=== PATIENT | female | born 1945 | race Caucasian/White ===

== ENCOUNTER → 2017-07-15 | Outpatient (CLI) | payer OTHER ==
[2017-07-15 10:56] LABS: BASO % 0.5 %; BASO ABS # 0.02 K/uL (0-0.2); COMPLETE YES; EOS % 7.2 %; HEMATOCRIT 43.3 % (37-47); LYMPH % 45.4 %; LYMPH ABS # 1.88 K/uL (1.2-3.4); MEAN CELL VOLUME 92.3 fL (80-100); MEAN CORPUSCULAR HEMOGLOBIN 31.6 pg (25-34); MEAN CORPUSCULAR HGB CONC 34.2 g/dl (32-36); MONO % 9.2 %; NEUT % 37.7 %; PLATELET COUNT 216 K/uL (130-400); RED BLOOD COUNT 4.69 M/uL (4.2-5.4); WHITE BLOOD COUNT 4.14 K/uL (4.8-10.8)
[2017-07-15 11:36] LABS: ALT/SGPT 35 U/L (12-78); AST/SGOT 26 U/L (15-37); BLOOD UREA NITROGEN 22 mg/dl (7-18); CALCIUM 9.8 mg/dl (8.5-10.1); CARBON DIOXIDE 26 mmol/L (21-32); CHLORIDE 108 mmol/L (98-107); CHOLESTEROL 213 mg/dl (0-200); CREATININE 0.66 mg/dl (0.60-1.20); GLUCOSE 92 mg/dl (70-99); POTASSIUM 3.8 mmol/L (3.5-5.1); SODIUM 140 mmol/L (136-145); TRIGLYCERIDES 60 mg/dl (0-150); URIC ACID 3.4 mg/dl (2.6-7.2); VERY LOW DENSITY LIPOPROT CALC 12 mg/dl
[2017-07-15 11:45] LABS: ALKALINE PHOSPHATASE 66 U/L (45-117); CHOLESTEROL/HDL RATIO 3.1; HDL CHOLESTEROL 69 mg/dl; LDL CHOLESTEROL CALCULATED 132 mg/dl; TOTAL IRON BINDING CAPACITY 331 mcg/dl (250-450)
[2017-07-15 11:55] LABS: ESTIMATED AVERAGE GLUCOSE 120 mg/dl; HA1C FLAG Normal (Normal)
--- NOTE | 2017-07-21 15:15 | CODING QUERY NO DIAGNOSIS ---
TREATMENT RENDERED WITHOUT A DIAGNOSIS 47 To promote full compliance with coding requirements relating to patient care, physician participation is requested in all cases of remote inpatient coder uncertainty. Please assist us with providing a diagnosis/symptom for the test(s) below: A diagnosis/symptom was not documented on your Order. A valid diagnosis/symptom is required to bill all insurances. Please remember that we are unable to code a diagnosis of rule out, probable, possible, questionable, or suspected. DOS 07/15/17 Tests that require a diagnosis: * COMP METABOLIC DIAGNOSIS: * CREATININE PHOSPHOKINASE DIAGNOSIS: * LIPID PROFILE FASTING DIAGNOSIS: * T4 FREE DIAGNOSIS: * TSH DIAGNOSIS: * URIC ACID DIAGNOSIS: * HEMOGLOBIN A1C DIAGNOSIS: * CBC W/AUTO DIFF DIAGNOSIS: * VITAMIN B12 DIAGNOSIS: * VITAMIN D, 25-HYDROXY DIAGNOSIS: Provider Signature: Date: Thank you [facility] Once completed, please kindly fax back to [phone] For questions please call [phone]
--- NOTE | 2017-08-08 12:37 | CODING QUERY MEDICAL NECESSITY ---
SUPPORTING DIAGNOSIS NEEDED A supporting diagnosis is required for the test/procedure performed on this patient in order for us to be reimbursed by the patient's insurance. Please provide a supporting diagnosis for the following test/procedure listed below next to the test name along with your signature. *If there is no additional diagnosis for this patient that would support the following test/procedure please document that below next to the test/procedure. Test(s)/Procedure(s) that require a supporting diagnosis: * HEMOGLOBIN A1C DIAGNOSIS: Provider Signature: Date: Thank you Monica Nevarez [email or web address] Information Management Once completed, please kindly fax back to [phone] For questions please call [phone]
== END | disposition home or self-care (01) ==
LOC: C.LABBC 08:10
PROVIDERS: ATTEND Family Medicine
DX: M81.0 Age-related osteoporosis without current pathological fracture (principal); R53.82 Chronic fatigue, unspecified; G47.30 Sleep apnea, unspecified; D51.9 Vitamin B12 deficiency anemia, unspecified; E55.9 Vitamin D deficiency, unspecified

== ENCOUNTER → 2018-02-21 | Outpatient (CLI) | payer OTHER ==
[2018-02-21 13:19] LABS: BASO % 0.5 %; BASO ABS # 0.02 K/uL (0-0.2); EOS ABS # 0.26 K/uL (0-0.5); HEMATOCRIT 41.7 % (37-47); HEMOGLOBIN 13.9 g/dL (12.0-16.0); IG# 0.01 K/uL (0.00-0.02); LYMPH % 38.2 %; LYMPH ABS # 1.65 K/uL (1.2-3.4); MEAN CELL VOLUME 93.7 fL (80-100); MEAN CORPUSCULAR HEMOGLOBIN 31.2 pg (25-34); MEAN CORPUSCULAR HGB CONC 33.3 g/dl (32-36); MEAN PLATELET VOLUME 9.6 fL (7.4-10.4); MONO % 10.2 %; MONO ABS # 0.44 K/uL (0.11-0.59); NEUT % 44.9 %; NEUT ABS # 1.94 K/uL (1.4-6.5); PLATELET COUNT 217 K/uL (130-400); RED CELL DISTRIBUTION WIDTH CV 13.8 % (11.5-14.5); RED CELL DISTRIBUTION WIDTH SD 47.3 fL (36.4-46.3); WHITE BLOOD COUNT 4.32 K/uL (4.8-10.8)
[2018-02-21 13:46] LABS: ALBUMIN 3.5 gm/dl (3.4-5.0); ALT/SGPT 32 U/L (12-78); AST/SGOT 18 U/L (15-37); BLOOD UREA NITROGEN 19 mg/dl (7-18); CALCIUM 9.2 mg/dl (8.5-10.1); CARBON DIOXIDE 28 mmol/L (21-32); CHOLESTEROL 210 mg/dl (0-200); CREATININE 0.73 mg/dl (0.60-1.20); GLUCOSE 91 mg/dl (70-99); POTASSIUM 3.7 mmol/L (3.5-5.1); SODIUM 141 mmol/L (136-145); URIC ACID 3.3 mg/dl (2.6-7.2)
[2018-02-21 13:56] LABS: ALKALINE PHOSPHATASE 57 U/L (45-117); LDL CHOLESTEROL CALCULATED 133 mg/dl; TOTAL PROTEIN 7.2 gm/dl (6.4-8.2); TRANSFERRIN 251 mg/dl (200-360)
[2018-02-22 06:19] LABS: HEMOGLOBIN A1C 5.9 % (4.5-5.6)
== END | disposition home or self-care (01) ==
LOC: C.LABBC 10:17
PROVIDERS: ATTEND Family Medicine
DX: E88.81 Metabolic syndrome and other insulin resistance (principal); E55.9 Vitamin D deficiency, unspecified; D51.9 Vitamin B12 deficiency anemia, unspecified; E78.9 Disorder of lipoprotein metabolism, unspecified; R53.83 Other fatigue; M25.9 Joint disorder, unspecified

== ENCOUNTER 2024-03-27 05:15 | Observation (INO) ==
--- NOTE | 2024-03-07 11:01 | PAT Medication Instructions ---
Medication Instructions Date of Service March 07, 2024 Home Medications Medication Instructions Recorded CPAP Machine #1 ea 09/17/22 CPAP Supplies #1 ea 09/17/22 pravastatin 10 mg tablet 10 mg PO Q OTHER DAY #45 tabs 12/27/23 Medication List: calcium citrate 315 mg calcium-vitamin D3 6.25 mcg (250 unit) tablet (Citracal + Vitamin D Maximum) 1 tab PO BID conjugated estrogens 0.625 mg/gram vaginal cream 1 applic vaginal UD PRN Menopausal Symptoms multivitamin (Daily Multi-Vitamin tablet) 1 tab PO BID pravastatin 10 mg tablet 10 mg PO Q OTHER DAY aspirin 81 mg tablet,delayed release (Adult Aspirin Regimen) 81 mg PO DAILY Biocidin 1 dose PO TID Gi Detox 1 - 2 cap PO UD Pro Julio 2000 1 dose PO UD Ubiquinol 100mg 100 mg PO QAM Vitamin D/K2 1 dose PO UD alpha lipoic acid 300 mg capsule 300 mg PO QAM ashwagandha root extract 500 mg capsule 500 mg PO BID magnesium malate, chelate 1 cap PO TID valsartan 160 mg tablet 160 mg PO HS MEDICATION INSTRUCTIONS: Continue as directed conjugated estrogens 0.625 mg/gram vaginal cream 1 applic vaginal UD PRN Menopausal Symptoms ASK your prescriber and surgeon aspirin 81 mg tablet,delayed release (Adult Aspirin Regimen) 81 mg PO DAILY STOP taking 2 weeks before surgery Biocidin 1 dose PO TID Gi Detox 1 - 2 cap PO UD Pro Julio 2000 1 dose PO UD Ubiquinol 100mg 100 mg PO QAM alpha lipoic acid 300 mg capsule 300 mg PO QAM ashwagandha root extract 500 mg capsule 500 mg PO BID DO NOT take the morning of surgery calcium citrate 315 mg calcium-vitamin D3 6.25 mcg (250 unit) tablet (Citracal + Vitamin D Maximum) 1 tab PO BID multivitamin (Daily Multi-Vitamin tablet) 1 tab PO BID magnesium malate, chelate 1 cap PO TID Vitamin D/K2 1 dose PO UD Take morning of surgery With a small sip of water, OTHERWISE NOTHING TO EAT OR DRINK AFTER MIDNIGHT: pravastatin 10 mg tablet 10 mg PO Q OTHER DAY Take evening before surgery calcium citrate 315 mg calcium-vitamin D3 6.25 mcg (250 unit) tablet (Citracal + Vitamin D Maximum) 1 tab PO BID valsartan 160 mg tablet 160 mg PO HS multivitamin (Daily Multi-Vitamin tablet) 1 tab PO BID magnesium malate, chelate 1 cap PO TID Other Notes If you have any questions please call us at [phone] or [phone] or [phone] or [phone]
--- NOTE | 2024-03-13 12:57 | Anesthesiology Consultation ---
Date of Service March 13, 2024 Assessment & Plan (1) Encounter for pre-operative examination: - Check BSG AM DOS - Infectious disease screening: Per assessment on 03/13/24: No known infectious disease contacts or current infectious disease symptoms. No noted recent Covid positive test result. - Outpatient joint assessment: Pt currently scheduled for inpatient pathway. If surgeon requests review for outpatient joint pathway, patient is not recommended candidate for outpatient joint program from anesthesia standpoint based on available information. - PCP visit (02/09/24): "Executive function deficit.. We discussed various issues regarding the diet and exposure to mold I agree that the current dietary recommendations are likely to help. I told her I knew very little but mold remediation and recommended that she contact Her about this issue. We did discuss exercise at length. She wanted to begin exercise by walking up and down the steps to the basement. I felt that it would be best if she would exercise in a safe area as there are many safe alternatives that would help build her lower extremity and gluteal strength... Primary osteoarthritis of right knee.. She will be getting surgery in March.. Visual disturbance.. I will ask her duplex trimmer to perform formal visual field testing" - Neurology visit (02/21/24): "78 yo female with MCI and here to get neurology eval for her condition .she is mainly worry about short term memory and occasional visual perception of having a car next to her when trying to pass a car on the highway. she can still drive and no have issue with driving. does not get lost. she still active with going to dancing class etc. she was recently referred to dementia specialist she signed up for program that apparently is to help with overall cognition and prevent dementia. 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 she has no problem with sleep and no speech issues. mom with early onset dementia. no recent head injury. pt lives with , who is retired [employer] colonel. pt can still cook and clean and do all her chores. she is learning new computer at local class for free.. Impression: 78 yo female with MCI-single domain (memory) without sign of dementia. Her visual perception while driving is nonspecific and does not localize and I do not feel it is due to STAPLE LASTER lesion or dementia. mri brain reassuring but does have atrophy globally. Recommendations: reassured pt. educated about hand exercise to do at home. increase brain activities with learning new language/music etc. she can drive. clinically follow. Follow up in 6 months." - Patient concern: Patient states that sister had significant corneal abrasion r/t issues with mask/face covering during surgery in the past. No personal/similar issues for patient but concern with something like this occurring to her perioperatively and wanted to have noted. Chart Review Chart Review: Acceptable Risk for Surgery and Patient seen in Pre Admission Testing Teaching & Discussion Pre-Anesthesia Teaching/Discussion Notes: Instructed NPO after midnight before surgery,except medications with 15 cc of water. Medication instructions provided according to the PAT guidelines. History Surgery Operation Date: 03/27/24 08:50 Proposed Procedures p Right Total Knee Arthroplasty - Sb Henry MD Height/Weight Height: 5 ft 1 in Weight: 56.3 kg Allergies Allergy/AdvReac Type Severity Reaction Status Date / Time chloramphenicol Allergy Intermediate Rash Verified 02/29/24 13:21 soy AdvReac Mild Gastrointestinal Verified 02/29/24 13:21 Upset Butalbital Powder Allergy Unknown Unknown Uncoded 02/29/24 13:21 Medications Home Medications Medication Instructions Recorded Confirmed Last Taken CPAP Machine #1 ea 09/17/22 02/21/24 Unknown CPAP Supplies #1 ea 09/17/22 02/21/24 Unknown calcium citrate 315 mg 1 tab PO BID 09/17/22 02/29/24 03/11/23 calcium-vitamin D3 6.25 mcg (250 unit) tablet (Citracal + Vitamin D Maximum) conjugated estrogens 0.625 mg/gram 1 applic vaginal UD PRN Menopausal 09/17/22 02/29/24 Unknown vaginal cream Symptoms #3 grams multivitamin (Daily Multi-Vitamin 1 tab PO BID 09/17/22 02/29/24 Unknown tablet) pravastatin 10 mg tablet 10 mg PO Q OTHER DAY #45 tabs 12/27/23 02/29/24 Unknown aspirin 81 mg tablet,delayed 81 mg PO Q OTHER DAY 02/21/24 03/13/24 Unknown release (Adult Aspirin Regimen) Biocidin 1 dose PO TID 02/29/24 02/29/24 Unknown Gi Detox 1 - 2 cap PO UD 02/29/24 02/29/24 Unknown Pro Julio 2000 1 dose PO UD 02/29/24 02/29/24 Unknown Ubiquinol 100mg 100 mg PO QAM 02/29/24 02/29/24 Unknown Vitamin D/K2 1 dose PO UD 02/29/24 02/29/24 Unknown alpha lipoic acid 300 mg capsule 300 mg PO QAM 02/29/24 02/29/24 Unknown roberto carlosa root extract 500 mg 500 mg PO BID 02/29/24 02/29/24 Unknown capsule magnesium malate, chelate 1 cap PO TID 02/29/24 02/29/24 Unknown valsartan 160 mg tablet 160 mg PO HS 02/29/24 02/29/24 Unknown Past Medical History Medical History Cardiac murmur Echo 04/2020: Mild AR/MR Familial hypercholesterolemia History of COVID-19 01/2022- runny nose, congestion, fatigue > resolved History of pericarditis 2005 Hx of type B viral hepatitis Remote hx "many years ago" Hyperlipidemia Hypertension LBBB (left bundle branch block) Chronic dating back to at least 07/2019 > stress test 08/2019 + Echo 04/2020 F/U PRN recommended per [facility] cardio 04/2020 Mild cognitive impairment Osteoarthritis Patient on ketogenic diet Prediabetes Diet controlled Prolapsed bladder Pessary Sleep apnea CPAP (compliant) Exercise / Class Metabolic Activity II 4-5 Yardwork/Stairs/Walk up hill (one FS: No CP, no SOB) Past Family History Family History Father Myocardial infarction Sister Breast cancer Mother Dementia Other No family history of adverse response to anesthesia Denies family history of Ovarian cancer Prostate cancer Lung cancer Colorectal cancer Past Surgical History Surgical History History of cataract surgery bilateral History of colonoscopy History of dilatation and curettage History of gynecologic surgery HSC Hx of biopsy intrauterine Past Anesthesia History No Hx of Anesthesia Complications and No Family Hx of Anesthesia Complications History of PONV No Hx of PONV and No Hx of Motion Sickness Social History Smoking Status: Never smoker Do You Dip or Chew Tobacco: No Hx Alcohol Use: Yes alcohol intake frequency: holidays/special occasions only Hx Substance Use: No substance use type: does not use Review of Systems Patient denies chest pain, shortness of breath, dyspnea on exertion, fever, chills, cough, wheezing, palpitations. Physical Exam Vital Signs BP 136/75 P 61 TEMP 97.9 SP02 96%RA RESP 18 Physical Full cervical extension range of motion. Full TMJ range of motion. TMD 3 finger breaths Mallampati Score 3 Dentition: intact, + caps Lungs: clear throughout to auscultation Cardiac: regular rate and rhythm, II/ systolic murmur Spine: normal Carotid arteries: negative bruit Extremities: no LE edema Lab Results Anesthesia Preop Results Results Anesthesia Widget: WBC 4.77 K/ul (4.8-10.8) L 03/13/24 Hgb 14.2 g/dl (12.0-16.0) 03/13/24 Hct 42.7 % (37.0-47.0) 03/13/24 Plt 195 K/uL (130-400) 03/13/24 Na 141 mmol/L (136-145) 03/13/24 K 4.1 mmol/L (3.5-5.1) 03/13/24 Cl 105 mmol/L (98-107) 03/13/24 CO2 30 mmol/L (21-32) 03/13/24 BUN 21 mg/dl (6-23) 03/13/24 Creat 0.59 mg/dl (0.6-1.2) L 03/13/24 Glucose Level 97 mg/dl (70-99(Fasting)) 03/13/24 PT 10.9 Seconds (9.0-12.0) 03/13/24 PTT 28 Seconds (21-31) 03/13/24 INR 1.0 (0.9-1.1) 03/13/24 Blood Type O Negative 03/13/24 Antibody Screen NEGATIVE 03/13/24 Testing Laboratory Results HgbA1C (07/05/23): 5.9% Electrocardiogram Date: 03/13/24 NSR at 62pm. LAD. LBBB. Chronic LBBB. No significant change compared to 08/15/2019 per day care provider comparison. Chest X-Ray Date: 03/13/24 FINDINGS: The lungs are clear. Cardiac silhouette is normal in size. No pleural effusions. No pneumothorax. IMPRESSION: No acute process. Echocardiogram Date: 05/07/20 EF 55-60%. LV wall motion is normal. Grade 2 diastolic dysfunction. Mild MR/AR. RVSP is normal. Stress Test Date: 09/06/19 1. Myocardial perfusion study without significant ischemic changes. 2. Multiple fixed defects, which likely represent artifact given normal wall motion. Cannot rule out some degree of infarct. 3. Normal left ventricular systolic function and wall motion. EF 62%. 4. Lexiscan induced shortness of breath. 5. Indeterminate Lexiscan ECG due to LBBB. Other Testing Brain MRI Date: 08/04/23 FINDINGS: There is no mass, hematoma, midline shift, or acute infarct. The mastoid air cells are clear. The ventricles and sulci demonstrate mild age- related involutional changes. Scattered foci of T2 hyperintensity seen within the periventricular and subcortical white matter are nonspecific but suggestive of mild microvascular ischemic changes. The major vascular flow voids at the skull base are well-maintained. Mild mucosal thickening within the maxillary sinuses. Prior bilateral lens replacement. IMPRESSION: No acute intracranial abnormality. Scattered foci of T2 hyperintensity seen within the periventricular and subcortical white matter are nonspecific but favor mild microvascular ischemic change.
--- NOTE | 2024-03-20 17:10 | History & Physical Report ---
Date of Service March 20, 2024 Assessment & Plan (1) Right knee DJD: 78-year-old female with advanced bilateral knee DJD. She is failed conservative measures. She is ready to proceed with knee replacement. Plan: Marcusran taken the operative right total knee replacement. The risks Mente this procedure explained to the patient include but not limited to DVT, PE, , infection, neurovascular injury, persistent pain, incomplete relief of symptoms, need for revision surgery. The patient understands and desires to proceed. Informed consent was obtained. She is working this around their bed and breakfast schedule. She is planned to be discharged home using home health. Her daughter is an EMT and her is around to help. (2) Primary osteoarthritis of left knee: (3) Visual disturbance: (4) Hypertension: (5) Sleep apnea: History of Present Illness Chief Complaint: . Bilateral knee pain discomfort right side greater than the left. Primary Care Provider: Colin Colbert MD . Patient is a 78-year-old female who presents for definitive treatment of her knees. Got a long history of bilateral knee pain discomfort is gradually gotten worse over time. The right has been bothering her quite a bit more than the left. The left is fairly manageable currently. She been through extensive conservative treatment which just does not help the right knee much. 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 She is interested in having both knees replaced in the future. She had steroid injections which become less successful. She tried viscosupplementation and PRP which did not help. She is ready to proceed with surgical intervention. Allergies Allergy/AdvReac Type Severity Reaction Status Date / Time chloramphenicol Allergy Intermediate Rash Verified 02/29/24 13:21 soy AdvReac Mild Gastrointestinal Verified 02/29/24 13:21 Upset Butalbital Powder Allergy Unknown Unknown Uncoded 02/29/24 13:21 Home Medications Medication Instructions Recorded Confirmed Type CPAP Machine #1 ea 09/17/22 02/21/24 Rx CPAP Supplies #1 ea 09/17/22 02/21/24 Rx calcium citrate 315 mg 1 tab PO BID 09/17/22 02/29/24 History calcium-vitamin D3 6.25 mcg (250 unit) tablet (Citracal + Vitamin D Maximum) conjugated estrogens 0.625 mg/gram 1 applic vaginal UD PRN Menopausal 09/17/22 02/29/24 History vaginal cream Symptoms #3 grams multivitamin (Daily Multi-Vitamin 1 tab PO BID 09/17/22 02/29/24 History tablet) pravastatin 10 mg tablet 10 mg PO Q OTHER DAY #45 tabs 12/27/23 02/29/24 Rx aspirin 81 mg tablet,delayed 81 mg PO Q OTHER DAY 02/21/24 03/13/24 History release (Adult Aspirin Regimen) Biocidin 1 dose PO TID 02/29/24 02/29/24 History Gi Detox 1 - 2 cap PO UD 02/29/24 02/29/24 History Pro Julio 2000 1 dose PO UD 02/29/24 02/29/24 History Ubiquinol 100mg 100 mg PO QAM 02/29/24 02/29/24 History Vitamin D/K2 1 dose PO UD 02/29/24 02/29/24 History alpha lipoic acid 300 mg capsule 300 mg PO QAM 02/29/24 02/29/24 History ashwagandha root extract 500 mg 500 mg PO BID 02/29/24 02/29/24 History capsule magnesium malate, chelate 1 cap PO TID 02/29/24 02/29/24 History valsartan 160 mg tablet 160 mg PO HS 02/29/24 02/29/24 History Wheeled Walker #1 ea 03/19/24 Rx Past Med/Surg History Medical History Patient on ketogenic diet LBBB (left bundle branch block) Chronic dating back to at least 07/2019 > stress test 08/2019 + Echo 04/2020 F/U PRN recommended per [facility] cardio 04/2020 History of pericarditis 2005 Hypertension Mild cognitive impairment Hx of type B viral hepatitis Remote hx "many years ago" History of COVID-19 01/2022- runny nose, congestion, fatigue > resolved Familial hypercholesterolemia Osteoarthritis Prolapsed bladder Pessary Prediabetes Diet controlled Cardiac murmur Echo 04/2020: Mild AR/MR Hyperlipidemia Sleep apnea CPAP (compliant) Surgical History History of cataract surgery bilateral History of dilatation and curettage History of gynecologic surgery HSC Hx of biopsy intrauterine History of colonoscopy Family History Father Myocardial infarction Sister Breast cancer Mother Dementia Other No family history of adverse response to anesthesia Denies family history of Ovarian cancer Prostate cancer Lung cancer Colorectal cancer Social History Smoking Status: Never smoker Second Hand Exposure: No (as a child); Do You Dip or Chew Tobacco: No; Hx Alcohol Use: Yes Hx Substance Use: No Preferred Language: Uzbek Communication Ability: Effective Visual Impairment: Diminished Hearing Ability: Use of Hearing Aid Livestock Laborer Required: No Beliefs That Will Affect Care: None marital status: Current Living Situation: Spouse current occupational status: employed How many Children do You have: 3 Feels Safe at Home: Yes Childhood Exposure to Second-Hand Smoke: Yes Diet Comment: keto caffeine: Yes (rare) Dental Care, Regularly: Yes Physical Activity Frequency: Daily Seatbelt Use: always Sunscreen Use: Yes Assistive Devices: CPAP, Glasses, Hearing Aid - Bilateral and Walker Review of Systems All systems reviewed & are unremarkable except as noted in HPI & below. Physical Exam . Physical examination reveals a pleasant middle-age female but looks in good health. Examination of both knees reveal patient walks with a bit of antalgic g ait. Examination the right knee reveals varus alignment to her knee. Got bony hypertrophy medially. She has a flexion contracture about 10 to 15 degrees and bends to about 110. Fairly stiff knee. No particular pain with hip motion. She is neurologically intact. Examination left knee reveals a similar but less severe varus deformity. Some slight tenderness over the medial joint line. Range of motion 5-1 20. No instability. Constitutional WD/WN, vitals as above Neck trachea midline, no thyromegaly Respiratory normal respiratory effort, lungs clear to auscultation Cardiovascular RRR, no murmur, no edema Chest (Breasts) normal inspection/palpation of breasts Gastrointestinal (Abdomen) normal bowel sounds, soft, nontender, no hepatosplenomegaly Results & Data Results & Data Laboratory Results . Diagnostic Findings . X-rays of both knees were reviewed. Shows advanced bilateral knee DJD. The right side is a bit worse than the left. She has complete loss of the medial joint space. She got subchondral sclerosis and osteophytes primarily medially. PG Care Time/CCT Total # of Minutes Spent Total Time Spent with Patient: Total time spent is greater than 50% in coordination of care (as documented) at patient's floor/unit and/or counseling patient: Coding Level of Care Code None Diagnoses Right knee DJD M17.11 Primary osteoarthritis of left knee M17.12 Visual disturbance H53.9 Hypertension I10 Sleep apnea G47.30
[2024-03-27] MEDS: CeleBREX 200 MG CAP PO SCH (06:03)
[2024-03-27] MEDS: ACETAMINOPHEN 500 MG TAB PO SCH ×2 (06:03→11:18)
[2024-03-27] MEDS: LR 500ML BOLUS, THEN 15ML/HR IV SCH (06:04)
[2024-03-27] MEDS: METOCLOPRAMIDE HCL 10 MG TABLET PO SCH (06:04)
[2024-03-27] MEDS: dexAMETHasone**PF** 10 MG/ML VIAL IV SCH (06:04)
[2024-03-27] MEDS: FAMOTIDINE 20 MG TAB PO SCH (06:04)
[2024-03-27] MEDS: LR 60ML/HR IV SCH (06:04)
[2024-03-27] MEDS ORDERED: BUPIVACAINE 0.5 % 5 MG/1 ML PF 10ML VIAL ONE (06:09)
[2024-03-27] MEDS ORDERED: ROPIVACAINE 0.5% 5 MG/ML 30 ML VIAL ONE (06:09)
[2024-03-27] MEDS ORDERED: ONDANSETRON INJ 2 MG/ML 2 ML VIAL IV PRN ×2 (06:37→10:44)
[2024-03-27] MEDS ORDERED: ATROPINE SULFATE 0.1 MG/ML 10ML SYR IV PRN (06:37)
[2024-03-27] MEDS ORDERED: fentaNYL citrate PF 100 MCG/2 ML VIAL IV PRN (06:37)
[2024-03-27] MEDS ORDERED: ePHEDrine sulfate 50 MG/ML AMP IV PRN (06:37)
[2024-03-27] MEDS ORDERED: MIDAZOLAM HCL 1 MG/ML 2ML VIAL ONE (06:41)
[2024-03-27] MEDS ORDERED: LIDOCAINE 2% 2 ML VIAL/AMP(20MG/ML) INFIL ONE (06:41)
[2024-03-27] MEDS ORDERED: PROPOFOL IV EMULSION 10 MG/ML 20 ML VIAL IV ONE (06:41)
--- NOTE | 2024-03-27 06:52 | History & Physical Bridge Note ---
Date of Service March 27, 2024 History & Physical Bridge Note I have examined the patient, reviewed the History & Physical and in the interval since the performance of the History & Physical I have noted the following changes of clinical significance: no changes noted
[2024-03-27] MEDS: ceFAZolin 2000MG 2,000 MG/15 ML SYR IV SCH (07:07)
[2024-03-27] MEDS: ROPIV 0.5% 246mg, Ketorolac 30mg, EPINEPHrine 0.5mg in NSS INFIL SCH (07:45)
[2024-03-27] MEDS: ORTHO JOINT ANESTHETIC ONE (07:45)
[2024-03-27] MEDS: TRANEXAMIC ACID 1,000 MG **IV Intra-op IV SCH (07:55)
--- NOTE | 2024-03-27 08:51 | Operative Report ---
PG Post Operative Report Pre & Post Diagnosis Operation Date: 03/27/24 07:00 Pre-Op Diagnosis: Right Knee Degenerative Joint Disease Post-Op Diagnosis: Right Knee Degenerative Joint Disease I identified the patient and participated in the time-out.: Yes Procedure Operation Date: 03/27/24 07:00 Actual Procedures p Right Total Knee Arthroplasty(Right) - Sb Henry MD Surgeon Sb Henry MD Pediatric Acute Care Unit Nurse Marcelo Nicole PA-C Estimated Blood Loss 50 Findings Consistent with Post-Op Diagnosis Operative findings reveal advanced right knee DJD. She had extensive grade 4 [id number] disease of the medial compartment with significant eburnation. She had a fixed varus deformity to her knee in a slight flexion contracture. Moderate-sized knee joint effusion. Specimens Right knee sent for pathology. Anesthesia Type Spinal MAC Complications none Disposition Accompanied Patient To Recovery: No Indications Patient is 78-year-old female with a long history of bilateral knee pain discomfort is gradually gotten worse over time. She been through extensive conservative treatment over the years it became less successful. X-rays show advanced knee arthritis. Right knee was bothering more than the left. She elected proceed with right total knee arthroplasty. Description of Procedure Operative implants consisted of: 1 Biomet Vanguard size 62.5 right posterior stabilized femoral component. 2. Biomet size 67 tibial tray. 3. 10 mm post stabilized polyethylene insert. 4. 28 x 8 all poly patella. The patient was taken the operating room, identified, and placed on the operating table in the supine position. All contact areas were appropriately padded. IV antibiotics tried by anesthesia team. A spinal anesthetic and abductor canal block had been provided in the holding area. Robledo catheter was placed in sterile fashion. Right thigh tent was then placed in the right lower extremity was then prepped and draped in usual sterile fashion. The right leg was elevated exsanguinated with use of an Esmarch and a turn was placed at 300 mmHg. An anterior approach to the right knee was then performed to longitudinal incision centered over the patella. Sharp dissection was carried through subcutaneous tissue down the extensor mechanism. A medial parapatellar arthrotomy incision was made. Some subperiosteal dissection was carried out medially. The fat pad was resected from Neath patella tendon. Lateral patellofemoral ligament was released. Patella subluxated laterally and the knee was flexed. The osteophytes were taken off distal femur. The ACL and PCL were then released from the distal femur and the tibia subluxated anteriorly. The external tibial alignment jig was then placed in the anterior face of the tibia and adjusted 12 mm medially. Proximal tibial cut was made remove about a millimeter bone from the medial side. Some osteophytes taken off medial and posterior medially. The tibia was sized to a size 67. Attention drawn to the femur. The distal femur was then entered with a sharp drill. Intramedullary canal was suction. A right 5 degree valgus cutting guide was placed. The distal femoral cutting block was pinned in place. Distal femoral cut was made to take an additional 3 mm bone off distal femur. The femur was then sized to a size 62.5. The AP cutting block was pinned parallel to the epicondylar axis which was 3 degrees of external rotation. The anterior cut, anterior chamfer, posterior cut, posterior chamfer cuts were made. The box cutting guide was placed in just slight lateral and the box cut was made. The knee was flexed. The remnants of the medial and lateral menisci were excised. The osteophytes were taken off the posterior aspect the femur. A trial femoral component was placed. The tibial tray was pinned Shelly external rotation and the drill and stem punch were used to create defect in proximal tibia for the tibial tray. The knee was then trialed and 10 mm insert fit most appropriately. Attention drawn the patella. The patella was cleaned of all soft tissue. Patella thickness measured 19 mm in thickness was cut down to 13. Was sized to a size 28 patella. The lug holes were drilled for the 28 patella. The lateral osteophyte was removed. Patella button was placed. Knee was taken through range of motion and the patella tracked nicely with no thumbs test. Attention drawn to placing the permanent components. Nupathe all trial components were removed. Bone plug was placed into this femur limit blood loss. A double batch Palacos G cement was mixed. A Biomet Vanguard size 62.5 right Po stabilized femoral component, size 67 tibial tray, a 10 mm post stabilized polyethylene insert, and a 28 x 8 all poly patella then cemented in place. The knee was brought out into full extension till cement hardened. Final cement check was then performed. Pericapsular tissues were injected with total of 100 cc of orthopedic joint mix. The patient did receive 1 g tranexamic acid. The tourniquet was then let down for final tourniquet time of 49 minutes. Hemostasis assured use electrocautery. Extensor Meclomen closed with combination 1 PDS suture #1 Vicryl suture in a [id number] fashion. Extensor Meclomen checked found to be intact the subcutaneous tissue then closed with 2 Dexon suture in buried interrupted fashion skin was closed skin jenifer. Leg was then cleaned and dried and sterile dressing with Xeroform, 4 fours, sterile ABD pad, sterile cast padding and Javier bandage were applied. Patient then transferred to the recovery room in stable condition. Patient tolerated the procedure well and there were no complications. Marcelo Nicole, my physician assistant general manager, was present for the entire procedure. His assistance was essential and required for appropriate patient positioning, prepping and draping, surgical exposure, performing the technical details of the operation, placement the implants, closure of the wound, and placement of the sterile bandage. I attest to the content of the Intraoperative Record and any orders documented therein. Any exceptions are noted below.
--- NOTE | 2024-03-27 09:29 | XRay Report ---
RIGHT KNEE 2 VIEWS History: Right total knee arthroplasty. Degenerative arthritis. Postop. FINDINGS: The patient is status post a right total knee arthroplasty. The hardware is intact. No frac ture or dislocation. Skin jenifer are in place. IMPRESSION: Right total knee arthroplasty. No evidence for hardware complication. ACT 112: Negative or not required by law. Electronically signed by: Sandeep Granados M.D. 03/27/2024 9:28 AM
--- NOTE | 2024-03-27 10:03 | Anesthesiology Progress Note ---
Date of Service March 27, 2024 Anesthesia Post Procedure Vital Signs Vital Signs: Temp Pulse Pulse Resp BP Pulse Ox O2 Del Method 03/27/24 09:50 36.4 C L 65 15 118/57 L 95 Room Air 03/27/24 09:40 64 15 116/56 L 94 Room Air 03/27/24 09:30 65 14 115/54 L 94 Room Air 03/27/24 09:20 66 16 111/52 L 96 Room Air 03/27/24 09:10 68 14 105/51 L 95 Room Air 03/27/24 09:00 72 14 97/48 L 95 Room Air 03/27/24 08:50 71 13 95/49 L 95 Room Air 03/27/24 08:42 36.0 C L 74 22 92/50 L 96 Room Air 03/27/24 05:40 36.4 C L 63 20 174/77 H 96 Room Air Notes Mental Status: alert / awake / arousable Patient Amnestic to Procedure: Yes Nausea / Vomiting: adequately controlled Pain: adequately controlled Airway Patency, RR, SpO2: stable & adequate BP & HR: stable & adequate Hydration State: stable & adequate Neuraxial Anesthesia: was administered and sensory block is resolving Anesthetic Complications: no major complications apparent
[2024-03-27] MEDS ORDERED: BIOCIDIN PO SCH (10:24)
[2024-03-27] MEDS ORDERED: MAGNESIUM HYDROXIDE SUSP 30 ML UDC PO PRN (10:24)
[2024-03-27] MEDS ORDERED: ALUMINUM/MAGNESIUM SUSP 30 ML UDC PO PRN (10:24)
[2024-03-27] MEDS ORDERED: VITAMIN D PO SCH (10:24)
[2024-03-27] MEDS ORDERED: ALPHA LIPOIC ACID 300 MG PO SCH (10:24)
[2024-03-27] MEDS ORDERED: UBIQUINOL 100 MG PO SCH (10:24)
[2024-03-27] MEDS ORDERED: NON-FORMULARY MEDICATION (Cpap Machine misc) SCH (10:24)
[2024-03-27] MEDS ORDERED: NALOXONE HCL 0.4 MG/1 ML VIAL/CARP IV PRN (10:24)
[2024-03-27] MEDS ORDERED: HYDROmorphone INJ 0.5 MG/0.5 ML SYR IV PRN (10:24)
[2024-03-27] MEDS ORDERED: PREMARIN VAG CRM 14 APPLN/30 GM TUBE PV PRN (10:24)
[2024-03-27] MEDS ORDERED: bisacodyL 10 MG SUPP PR PRN (10:24)
[2024-03-27] MEDS ORDERED: K2 PO SCH (10:24)
[2024-03-27] MEDS ORDERED: NON-FORMULARY MEDICATION (Amino Acids [Amino Acid] Capsule) PO SCH (10:24)
[2024-03-27] MEDS ORDERED: METOCLOPRAMIDE HCL INJ 5 MG/ML 2 ML VIAL IV PRN (10:24)
[2024-03-27] MEDS ORDERED: NON-FORMULARY MEDICATION (Multivitamin [Daily Multi-Vitamin] tablet) PO SCH (10:24)
[2024-03-27] MEDS ORDERED: ASHWAGANDHA ROOT EXTRACT 500 MG PO SCH (10:24)
[2024-03-27] MEDS ORDERED: [UNRECOGNIZED DRUG - OTHER] PO SCH (10:24)
[2024-03-27] MEDS ORDERED: [UNRECOGNIZED DRUG - OTHER] PO SCH (10:24)
[2024-03-27] MEDS ORDERED: MAGNESIUM MALATE PO SCH (10:24)
[2024-03-27] MEDS ORDERED: SENNA 8.6 MG TAB PO SCH (10:24)
[2024-03-27] MEDS: SODIUM CHLORIDE 0.9% 1,000 ML IV SCH (10:35)
[2024-03-27] MEDS: CALCIUM 600MG + VIT D 400 IU TAB PO SCH (11:18)
[2024-03-27] MEDS: ASPIRIN 81 MG ECTAB PO SCH (11:18)
[2024-03-27] MEDS: MULTIVITAMIN TAB PO SCH (11:18)
[2024-03-27] MEDS: DOCUSATE SODIUM 100 MG CAP PO SCH (11:18)
[2024-03-27] MEDS: KETOROLAC TROMETHAMINE 15 MG/ML VIAL IV SCH (12:16)
[2024-03-27] MEDS: ceFAZolin 1000MG 1,000 MG/7.5 ML SYR IV SCH (13:49)
[2024-03-27] MEDS: TRANEXAMIC ACID / 0.7% NACL 1,000 MG/100 ML BAG IV SCH (13:49)
[2024-03-27] MEDS: ASCORBIC ACID 500 MG TAB PO SCH (16:24)
[2024-03-27] MEDS: SENNA 8.6 MG TAB PO SCH (20:22)
[2024-03-27] MEDS: VALSARTAN 80 MG TAB PO SCH (20:22)
[2024-03-28] MEDS: oxyCODONE HCL IR 5 MG TAB (IMMEDIATE RELEASE) PO PRN (05:30)
[2024-03-28 07:33] LABS: Hematocrit (blood only) 38.2 % (37.0-47.0); Hemoglobin 12.9 g/dl (12.0-16.0); Mean Corpuscular Hemoglobin 30.9 pg (25.0-34.0); Mean Corpuscular Hgb Conc 33.8 g/dL (32.0-36.0); Mean Corpuscular Volume 91.6 fL (80.0-100.0); Mean Platelet Volume 9.6 fL (9.4-12.4); Platelet Count 196 K/uL (130-400); RDW Coefficient of Variation 13.9 % (11.5-14.5); RDW Standard Deviation 47.1 fL (36.4-46.3); Red Blood Count 4.17 M/uL (4.20-5.40); White Blood Count 10.09 K/ul (4.8-10.8)
--- NOTE | 2024-03-28 07:55 | Surgery Progress Note ---
Date of Service March 28, 2024 Assessment & Plan (1) Status post right knee replacement: Plan: 78-year-old female postop day 1 from right knee replacement doing okay. She is little bit confused a little BioSorb septic related to the pretty hefty dose of pain medicine. Medically she appears doing well. Plan: 1. DVT prophylaxis including thigh-high teds, SCDs, aspirin twice a day. 2. PT/OT. Weight-bear as tolerated right total knee protocol. 3. Pain control doing okay with current pain regimen. We need to limit the doses of narcotics. Should give a smaller dose a bit more frequently if needed. No more than 5 mg at a time. 4. As disposition plan discharge home with some home health if she does okay in therapy today. Admission and Anticipated Discharge Date Admission Date: March 27, 2024 Subjective 78-year-old female postop day 1 from a right knee replacement. She had a reasonable night but had quite a bit of pain in the middle night sharyn. Big dose of pain medicine. She is a little bit confused this morning. Just seemed a little bit out of sorts. Denies any chest pain or shortness of breath. Knee pain is under much better control. Just seems a little overwhelmed by the situation. Physical Exam Physical Exam: Physical examination was a pleasant elderly female. Sitting up in her bedside chair and asking a lot of questions. Examination of the right leg reveals dressing clean dry and intact. She can dorsiflex and plantarflex her foot appropriately. She is neurologically intact. Respiratory: normal respiratory effort, lungs clear to auscultation Cardiovascular: RRR, no murmur, no edema Gastrointestinal (Abdomen): normal bowel sounds, soft, nontender, no hepatosplenomegaly Results & Data Vital Signs (Past 12 Hours) Vital Signs Temp Pulse Resp BP Pulse Ox O2 Del Method 03/28/24 07:00 36.8 C 66 20 151/78 H 98 Room Air 03/28/24 03:14 36.7 C 60 16 149/72 H 96 Room Air 03/27/24 23:13 37.0 C 63 16 151/71 H 94 Room Air Laboratory Results Hemoglobin is 12.9. Hematocrit 38.2. Electrolytes are pending. PG Care Time/CCT Total # of Minutes Spent Total Time Spent with Patient: Total time spent is greater than 50% in coordination of care (as documented) at patient's floor/unit and/or counseling patient: Coding Level of Care Code 62781 Post Operative Follow-Up Diagnoses Status post right knee replacement Z96.651
[2024-03-28] MEDS: dexAMETHasone 10 MG in SYRINGE 0 ML IV SCH (07:58)
[2024-03-28 08:07] LABS: BUN Creatinine Ratio 28.3 (10-20); Calcium 8.9 mg/dl (8.6-10.3); Creatinine Clr Calc Pharmacy 60.2 ml/min; Est GFR (African American) 102.6 ml/min; Est GFR (Non-African American) 88.5 ml/min; Potassium 3.9 mmol/L (3.5-5.1)
[2024-03-29] MEDS ORDERED: PRAVASTATIN SOD 10 MG TAB PO SCH (09:00)
--- NOTE | 2024-04-05 12:51 | Discharge Summary ---
Date of Service April 05, 2024 Discharge Data Procedures Performed Operation Date: 03/27/24 07:00 Actual Procedures p Right Total Knee Arthroplasty(Right) - Sb Henry MD Hospital Course (1) Status post right knee replacement: This is a 78 year old patient admitted on 03/27/24 and underwent total knee arthroplasty. She tolerated the procedure well and there were no complications. Transferred to the PACU post op and later to the orthopedic floor for further care. She was given ancef for antibiotic prophylaxis. She was also given LLUVIA stockings, SCDs, and aspirin for DVT prophylaxis. Hemoglobin, hematocrit, and vital signs were monitored during her hospital stay and remained stable. Did not require any blood transfusions. There were no complications during her hospital stay. By post op day #1 the patient was tolerating a regular diet, pain was reasonably controlled with oral pain medicine, and she was participating in physical therapy. On post op day #1 the patient was discharged home and set up with home health care. She was given printed discharge instructions including prescriptions for extra strength tylenol, aspirin, cefadroxil, ketorolac, zofran, oxycodone, and senokot. Continue physical therapy, weight bearing as tolerated. Continue LLUVIA stockings. Follow up approximately 2 weeks post op or sooner if there are problems or concerns. Coding Level of Care Code None Diagnoses Status post right knee replacement Z96.651
== END 2024-03-28 12:48 | disposition home health service (06) ==
LOC: ASU 05:15 → 3E 05:15
DX: M25.461 Effusion, right knee; Z88.8 Allergy status to other drugs, medicaments and biological substances; R73.03 Prediabetes; M65.9 Synovitis and tenosynovitis, unspecified; M17.11 Unilateral primary osteoarthritis, right knee; M21.161 Varus deformity, not elsewhere classified, right knee; G47.33 Obstructive sleep apnea (adult) (pediatric); Z91.018 Allergy to other foods; I10 Essential (primary) hypertension; Z79.899 Other long term (current) drug therapy; I35.1 Nonrheumatic aortic (valve) insufficiency; I44.7 Left bundle-branch block, unspecified; H53.9 Unspecified visual disturbance; Z79.82 Long term (current) use of aspirin